=== PATIENT | male | born 1955 | race Two or more races ===

== ENCOUNTER 2022-02-20 18:36 | Inpatient (IN) | payer MEDICAID ==
[~2022-02-20] VITALS: Ht 165.1 cm; Wt 68.2 kg
[2022-02-20 20:13] LABS: Basophils # (auto) 0.1 10 ^3/uL (0-0.2); Hemoglobin 8.6 g/dL (13.5-17.5); Monocytes # (auto) 0.5 10 ^3/uL (0-1.3)
[2022-02-20 20:15] LABS: Basophils % (auto) 0.9 % (0.0-2.0); Eosinophils # (auto) 0.1 10 ^3/uL (0-0.8); Eosinophils % (auto) 0.5 % (0.0-7.0); Hematocrit 30.3 % (41.0-53.0); Lymphocytes # (auto) 0.6 10 ^3/uL (0.4-5.4); Lymphocytes % (auto) 5.8 % (10.0-50.0); Mean Corpuscular Hemoglobin 17.5 pg (28.0-32.0); Mean Corpuscular Hgb Conc. 28.4 g/dL (32.0-36.0); Mean Corpuscular Volume 61.4 fL (80.0-100.0); Monocytes % (auto) 4.6 % (0.0-12.0); Neutrophils # (auto) 9.5 10 ^3/uL (1.6-8.6); Neutrophils % (auto) 88.2 % (37.0-80.0); Red Blood Cells 4.93 10^6/uL (4.5-5.90); White Blood Cell 10.8 10^3/uL (4.4-10.8)
[2022-02-20 20:20] LABS: Red Cell Distribution Width 20.5 % (11.8-14.3)
[2022-02-20 20:34] LABS: Albumin 4.5 g/dL (3.4-5.0); Calcium 8.7 mg/dL (8.5-10.1); Potassium 4.5 mmol/L (3.5-5.1)
[2022-02-20 20:36] LABS: Bilirubin, Total 0.4 mg/dL (0.2-1.0); Total Protein 8.2 g/dL (6.4-8.2)
[2022-02-21] MEDS ORDERED: MORPHINE SULFATE INJ 2 MG/ml SYRG IV ONE (03:15)
[2022-02-21] MEDS ORDERED: SODIUM CHLORIDE 0.9% 1,000 ML IV ONE (03:15)
[2022-02-21] MEDS ORDERED: ASPirin 81 mg TAB PO ONE (03:15)
[2022-02-21] MEDS ORDERED: DEXTROSE (50%) 50ML SYRG IV PRN (04:45)
[2022-02-21] MEDS ORDERED: ONDANSETRON HCL 4 MG/2 ML VIAL IV PRN (04:45)
[2022-02-21] MEDS ORDERED: MORPHINE SULFATE INJ 2 MG/ml SYRG IV PRN (04:45)
[2022-02-21] MEDS ORDERED: NITROGLYCERIN 0.4 MG SL TAB SL PRN (04:45)
[2022-02-21] MEDS: ACCU-CHEK COMFORT CURVE STRIP VI SCH ×2 (06:00→12:48)
[2022-02-21] MEDS ORDERED: InsuLIN REG 1unit/0.01ml Soln (100units/ml) SC SCH (06:00)
[2022-02-21] MEDS: LEVOTHYROXINE SODIUM 50 MCG TAB PO SCH (07:10)
[2022-02-21] MEDS: hydrALAZINE HCL 25 MG TAB PO SCH ×2 (11:38→21:30)
[2022-02-21] MEDS: LOSARTAN POTASSIUM 25 MG TAB PO SCH (11:43)
[2022-02-21] MEDS: ASPirin 81 mg TAB PO SCH (11:43)
[2022-02-21] MEDS: METOPROLOL TARTRATE 25 MG TAB PO SCH ×2 (11:45→21:29)
[2022-02-21] MEDS: CLOPIDOGREL BISULFATE 75 MG TAB PO SCH (11:46)
[2022-02-21] MEDS: PANTOPRAZOLE 40 MG TAB PO SCH (11:47)
[2022-02-21] MEDS: ENOXAPARIN SOD 30 MG/0.3 ML SYRINGE SC SCH (11:48)
[2022-02-21 12:03] LABS: Urine WBC None Seen /hpf (0 - 3)
[2022-02-21 12:27] LABS: Urine Bacteria NONE SEEN /hpf (None Seen); Urine Blood Negative /uL (Negative); Urine Hyaline Cast FEW /lpf (0 - 2); Urine Specific Gravity 1.017 (1.001-1.035)
[2022-02-21 12:30] LABS: Cholesterol 109 mg/dL (< 200); HDL Cholesterol 42 mg/dL (40-59); LDL Cholesterol 68 mg/dL (< 100); Triglycerides 68 mg/dL (< 150)
[2022-02-21 16:25] VITALS: BP 147/52
[2022-02-21] MEDS ORDERED: HYDR50TA15 PO ×2 (17:02→17:06)
[2022-02-21] MEDS ORDERED: LEVO50TA7 PO (17:02)
[2022-02-21] MEDS ORDERED: LOSA25TA38 PO (17:02)
[2022-02-21] MEDS ORDERED: ATOR10TA52 PO (17:02)
[2022-02-21] MEDS ORDERED: CLOP75TA70 PO (17:02)
[2022-02-21] MEDS ORDERED: CYA100I PO (17:02)
[2022-02-21] MEDS ORDERED: ASPI-543 PO (17:06)
[2022-02-21] MEDS ORDERED: METO25TA93 PO (17:06)
[2022-02-21] MEDS ORDERED: OMEP20TA PO (17:06)
[2022-02-21] MEDS: ACETAMINOPHEN 325 MG TAB PO PRN (19:39)
[2022-02-21 22:00] VITALS: BP 130/44
[2022-02-21] MEDS ORDERED: ATORVASTATIN 20 MG TAB PO SCH (22:00)
[2022-02-22 05:00] VITALS: BP 147/49
[2022-02-22 05:12] LABS: Basophils # (auto) 0 10 ^3/uL (0-0.2); Eosinophils # (auto) 0.5 10 ^3/uL (0-0.8); Hematocrit 28.2 % (41.0-53.0); Hemoglobin 8.1 g/dL (13.5-17.5); Mean Corpuscular Hemoglobin 17.9 pg (28.0-32.0); Monocytes # (auto) 0.6 10 ^3/uL (0-1.3); Monocytes % (auto) 11.3 % (0.0-12.0); Nucleated Red Blood Cells % 0.1 %; Red Blood Cells 4.54 10^6/uL (4.5-5.90); White Blood Cell 5.3 10^3/uL (4.4-10.8)
[2022-02-22 05:14] LABS: Basophils % (auto) 0.7 % (0.0-2.0); Lymphocytes # (auto) 0.4 10 ^3/uL (0.4-5.4); Mean Corpuscular Hgb Conc. 28.7 g/dL (32.0-36.0); Mean Corpuscular Volume 62.3 fL (80.0-100.0); Neutrophils # (auto) 3.7 10 ^3/uL (1.6-8.6)
[2022-02-22 05:24] LABS: Red Cell Distribution Width 20.6 % (11.8-14.3)
[2022-02-22 05:29] LABS: Albumin 3.8 g/dL (3.4-5.0); Calcium 8.9 mg/dL (8.5-10.1); Potassium 4.5 mmol/L (3.5-5.1)
[2022-02-22 05:31] LABS: BUN/Creatinine Ratio 20.2
[2022-02-22 05:34] LABS: Bilirubin, Total 0.4 mg/dL (0.2-1.0); Total Protein 7.1 g/dL (6.4-8.2)
[2022-02-22] MEDS: LEVOTHYROXINE SODIUM 50 MCG TAB PO SCH (05:57)
[2022-02-22 09:00] VITALS: BP_SYST 105; BP_SYST 151; BP_DIAS 43; BP_DIAS 67
[2022-02-22] MEDS: ASPirin 81 mg TAB PO SCH (10:29)
[2022-02-22] MEDS: hydrALAZINE HCL 25 MG TAB PO SCH (10:29)
[2022-02-22] MEDS: LOSARTAN POTASSIUM 25 MG TAB PO SCH (10:30)
[2022-02-22] MEDS: METOPROLOL TARTRATE 25 MG TAB PO SCH (10:31)
[2022-02-22] MEDS: PANTOPRAZOLE 40 MG TAB PO SCH (10:31)
[2022-02-22] MEDS: CLOPIDOGREL BISULFATE 75 MG TAB PO SCH (10:31)
[2022-02-22] MEDS: ENOXAPARIN SOD 30 MG/0.3 ML SYRINGE SC SCH (10:32)
[2022-02-22] MEDS: ACETAMINOPHEN 325 MG TAB PO PRN (10:39)
[2022-02-22 13:00] VITALS: BP 123/40
[2022-02-22 14:43] VITALS: BP 123/40
== END 2022-02-22 17:20 | disposition home or self-care (01) | DRG 198 ==
LOC: ER 18:36 → EDBD 18:36 → EDUNIT# 18:36 → TELE 02-21 04:47 → TELE-WESTW 02-21 14:29
PROVIDERS: ADMIT Nurse Practitioner; ATTEND Family Medicine
DX: I25.110 Atherosclerotic heart disease of native coronary artery with unstable angina pectoris (principal); N17.0 Acute kidney failure with tubular necrosis; D63.1 Anemia in chronic kidney disease; N18.30 Chronic kidney disease, stage 3 unspecified; E86.0 Dehydration; I12.9 Hypertensive chronic kidney disease with stage 1 through stage 4 chronic kidney disease, or unspecified chronic kidney disease; Z20.822 Contact with and (suspected) exposure to COVID-19; I25.2 Old myocardial infarction
CPT/HCPCS: 36415; 71045; 76775; 80053; 80061; 81001; 82306; 82570; 82962; 83735; 83880; 83970; 84100; 84156; 84300; 84443; 84484; 85025; 93005; 93306; 96361; 96372; 96374; G0378